=== PATIENT | male | born 1965 | race Caucasian/White ===

== ENCOUNTER 2023-03-25 06:06 | Day surgery (SDC) | payer OTHER ==
[2023-03-18 14:24] VITALS: BMI 29.8
[2023-03-25] MEDS ORDERED: oxyCODONE HCL 5 MG TABLET PO PRN (07:14)
[2023-03-25] MEDS ORDERED: ONDANSETRON 4 MG/2 ML VIAL IVPUSH PRN (07:14)
[2023-03-25] MEDS ORDERED: LACTATED RINGERS SOLUTION 1,000 ML IV SCH (07:15)
[2023-03-25] MEDS ORDERED: MIDAZOLAM HCL 2 MG/2 ML SINGLE DOSE VIAL ONE (07:16)
[2023-03-25] MEDS ORDERED: PROPOFOL 20 ML ONE (07:31)
[2023-03-25] MEDS ORDERED: KETOROLAC TROMETHAMINE 30 MG/1 ML VIAL IVPUSH ONE (07:57)
[2023-03-25] MEDS ORDERED: ACETAMINOPHEN 1000 MG/100 ML BAG IVPB ONE (07:57)
[2023-03-25 08:21] VITALS: RESP 18
[2023-03-25 09:47] VITALS: BP 101/66; PULSE 53; TEMP 97.3
[2023-03-25] MEDS ORDERED: ACETAMINOPHEN 325 MG TABLET (FP) PO PRN (13:00)
== END 2023-03-25 09:12 | disposition home or self-care (01) ==
LOC: FASU 06:06
PROVIDERS: ATTEND Orthopaedic Surgery
PROC: 0RSJXZZ Reposition Right Shoulder Joint, External Approach (ICD-10-PCS; principal; 2023-03-25 07:30)
DX: M75.01 Adhesive capsulitis of right shoulder (principal)